=== PATIENT | female | born 2000 | race Two or more races ===

== ENCOUNTER 2022-03-28 14:45 | Inpatient (IN) | payer OTHER ==
[~2022-03-28] VITALS: Ht 157.5 cm; Wt 59.9 kg
[2022-04-06] MEDS ORDERED: PRENATAL TABLE1 EAC1 PO (06:20)
== END 2022-04-08 12:55 | disposition home or self-care (01) | DRG 807 ==
LOC: EDSTATUS 14:45 → OB/GYN 04-04 14:45 → LDR 04-06 06:03 → OB/GYN 04-06 15:00
PROVIDERS: ADMIT Obstetrics & Gynecology Maternal & Fetal Medicine; ATTEND Obstetrics & Gynecology Maternal & Fetal Medicine
PROC: 10E0XZZ Delivery of Products of Conception, External Approach (ICD-10-PCS; principal; 2022-04-06)
PROC: 0UQMXZZ Repair Vulva, External Approach (ICD-10-PCS; 2022-04-06)
PROC: 4A1HXCZ Monitoring of Products of Conception, Cardiac Rate, External Approach (ICD-10-PCS; 2022-04-06)
DX: O70.0 First degree perineal laceration during delivery (principal); Z37.0 Single live birth; Z3A.40 40 weeks gestation of pregnancy; Z20.822 Contact with and (suspected) exposure to COVID-19

== ENCOUNTER 2022-03-28 17:09 | Outpatient (CLI) | payer OTHER | END 2022-03-28 18:11 | disposition home or self-care (01) | LOC: NST 17:09 | PROVIDERS: ATTEND Obstetrics & Gynecology Gynecology | DX: Z34.83 Encounter for supervision of other normal pregnancy, third trimester (principal) ==

== ENCOUNTER 2022-04-03 16:36 | Outpatient (CLI) | payer OTHER | END 2022-04-03 17:40 | disposition home or self-care (01) | LOC: NST 16:36 | PROVIDERS: ATTEND Obstetrics & Gynecology | DX: Z34.83 Encounter for supervision of other normal pregnancy, third trimester (principal) ==